=== PATIENT | female | born 1995 | race Two or more races ===

== ENCOUNTER 2021-04-30 07:18 | Observation (INO) | payer MEDICAID ==
[2021-04-30] MEDS ORDERED: PREN-96 PO (08:30)
== END 2021-04-30 09:33 | disposition home or self-care (01) ==
LOC: EDBD 07:18 → LDRP 07:18
PROVIDERS: ADMIT Obstetrics & Gynecology; ATTEND Obstetrics & Gynecology
DX: O99.891 Other specified diseases and conditions complicating pregnancy (principal); M54.9 Dorsalgia, unspecified; O99.353 Diseases of the nervous system complicating pregnancy, third trimester; G40.909 Epilepsy, unspecified, not intractable, without status epilepticus; O99.213 Obesity complicating pregnancy, third trimester; E66.01 Morbid (severe) obesity due to excess calories; Z3A.28 28 weeks gestation of pregnancy; W19.XXXA Unspecified fall, initial encounter; Y93.89 Activity, other specified; Y92.89 Other specified places as the place of occurrence of the external cause
CPT/HCPCS: 59025; 76805; 76818; 81002; 94760; G0378; G0379

== ENCOUNTER 2024-10-08 19:14 | Inpatient (IN) | payer MEDICAID ==
[~2024-10-08] VITALS: Ht 175.3 cm; Wt 165.2 kg
[~2024-10-08 19:14] MED LIST: PREN-96 PO
--- NOTE | 2024-10-08 19:25 | ED.PDOC ---
HPI Comments 29 y/o F, presents to the ED for CC chest pain. Patient states, she has been experiencing right sided non-radiating chest pain with associated symptoms of nausea [id number]. Patient comments on, current 04/06 chest tightness. Patient relays similar symptoms in the past however, never to this extent. Patient denies any social history. Patient denies shortness of breath, fatigue, weakness, or N/V/D. No other symptoms or modifying factors at this time. Time Seen by MD: 19:10 Reviewed Notes: Nurses Notes, Field Operations Farm Manager Notes, Medications, Allergies Allergies: Coded Allergies: Aspirin (Verified Allergy, Unknown, 10/08/24) Ibuprofen (Verified Allergy, Unknown, 10/08/24) Penicillins (Verified Allergy, Unknown, 10/08/24) Sulfa Antibiotics (Verified Allergy, Unknown, 10/08/24) Vancomycin (Verified Allergy, Unknown, 10/08/24) Home Meds Reported Medications Vit W/ Ferrous Fumara ( One Daily) Daily Tab, 1 TAB PO DAILY, #90 TAB 3 Refills 04/30/21 Information Source: Patient, Emergency Med Personnel, Significant Other Mode of Arrival: EMS Severity: Moderate Timing: Minutes Duration: Since onset Prehospital treatment: None Location: Chest (R) Radiation: No Radiation Quality: Tightness Cardiac Risk Factors: HTN PE Risk Factors: Other History of: None Modifying Factors: Nothing Associated Signs and Symptoms: None Past Medical History PAST MEDICAL HISTORY: DM, HTN 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: Denies all RAILROAD INSPECTOR Hx Family History Family History: Family hx of DM, Family hx of Cancer Social History Smoker: Non-Smoker Alcohol: Denies ETOH Use Drugs: Denies Drug Use Lives In: Home Constitutional: denies: chills, diaphoresis, fatigue, fever, malaise, sweats, weakness, others EENTM: denies: blurred vision, double vision, ear bleeding, ear discharge, ear drainage, ear pain, ear ringing, eye pain, eye redness, hearing loss, mouth pain, mouth swelling, nasal discharge, nose bleeding, nose congestion, nose pain, photophobia, tearing, throat pain, throat swelling, voice changes, others Respiratory: denies: cough, hemoptysis, orthopnea, SOB at rest, shortness of breath, SOB with excertion, stridor, wheezing, others Cardiovascular: reports: chest pain; denies: dizzy spells, diaphoresis, Dyspnea on exertion, edema, irregular heart beat, left arm pain, lightheadedness, palpitations, PND, syncope, others Gastrointestinal: reports: nausea; denies: abdomen distended, abdominal pain, blood streaked bowels, constipated, diarrhea, dysphagia, difficulty swallowing, hematemesis, melena, poor appetite, poor fluid intake, rectal bleeding, rectal pain, vomiting, others Genitourinary: denies: abnormal vagina bleeding, burning, dyspareunia, dysuria, flank pain, frequency, hematuria, incontinence, pain, , vagina discharge, urgency, others Neurological: denies: dizziness, fainting, headache, left sided numbness, left sided weakness, numbness, paresthesia, pre-existing deficit, right sided numbness, right sided weakness, seizure, speech problems, tingling, tremors, weakness, others Musculoskeletal: denies: back pain, gout, joint pain, joint swelling, muscle pain, muscle stiffness, neck pain, others Integumetry: denies: bruises, change in color, change in hair/nails, dryness, laceration, lesions, lumps, rash, wounds, others Allergic/Immunocompromised: denies: Difficulty Healing, Frequent Infections, Hives, Itching, others Hematologic/Lymphatic: denies: anemia, blood clots, easy bleeding, easy bruising, swollen glands, others Endocrine: denies: excessive hunger, excessive sweating, excessive thirst, excessive urination, flushing, intolerance to cold, intolerance to heat, unexplained weight gain, unexplained weight loss, others Psychiatric: denies: anxiety, bipolar disorder, depression, hopeless, panic disorder, schizophrenia, sleepless, suicidal, others All Other Systems: Reviewed and Negative Physical Exam General Appearance: Mild Distress, Obese HEENT: Normal ENT Inspection, Pharynx Normal, TMs Normal Neck: Full Range of Motion, Non-Tender, Normal, Normal Inspection Respiratory: Chest Non-Tender, Lungs Clear, No Accessory Muscle Use, No Respiratory Distress, Normal Breath Sounds Cardiovascular: No Edema, No JVD, No Murmur, No Gallop, Normal Peripheral Pulses, Regular Rate/Rhythm Breast Exam: Deferred Gastrointestinal: No Organomegaly, Non Tender, No Pulsatile Mass, Normal Bowel Sounds, Soft Genitalia: Deferred Pelvic: Deferred Rectal: Deferred Extremities: No calf tenderness, Normal capillary refill, Normal inspection, Normal range of motion, Non-tender, No pedal edema Musculoskeletal : Apperance: Normal Neurologic: Alert, all source intelligence II-XII nml as Tested, No Motor Deficits, Normal Affect, Normal Mood, No Sensory Deficits Cerebellar Function: Normal Reflexes: Normal Skin: Dry, Normal Color, Warm Lymphatic: No Adenopathy EKG EKG : Pulse Rate (adult): 111 [place]: Normal Cardiac Rhythm: ST Block: None Hypertrophy: None ST: Normal Was a procedure done? Was a procedure done?: No CP Differential Dx Differential Diagnosis: A-fib, Sinus Tachycardia Differential Diagnosis: HTN Essential, HTN Accelerated Differential Diagnosis: Chest Wall Pain, Costochondritis X-Ray, Labs, Meds, VS Vital Signs Date Time Temp Pulse Resp B/P (MAP) Pulse Ox O2 Delivery O2 Flow Rate FiO2 10/08/24 20:46 111 10/08/24 20:42 120 10/08/24 19:30 111 10/08/24 19:18 98.7 112 18 134/86 (102) 100 Lab Test 10/08/24 20:26 10/08/24 19:35 Range/Units D-Dimer, Quantitative < 0.19 0.0-0.49 mg/L FEU Troponin I High Sensitivity < 3 L < 3 L </=34 ng/L White Blood Count 18.9 H 4.4-10.8 10^3/uL Red Blood Count 5.43 H 4.0-5.20 10^6/uL Hemoglobin 13.2 12.2-16.2 g/dL Hematocrit 42.0 36.0-46.0 % Mean Corpuscular Volume 77.4 L 80.0-100.0 fL Mean Corpuscular Hemoglobin 24.3 L 28.0-32.0 pg Mean Corpuscular Hemoglobin Concent 31.3 L 32.0-36.0 g/dL Red Cell Distribution Width 17.1 H 11.8-14.3 % Platelet Count 335 140-450 10^3/uL Mean Platelet Volume 8.2 6.9-10.8 fL Neutrophils (%) (Auto) 72.3 37.0-80.0 % Lymphocytes (%) (Auto) 19.4 10.0-50.0 % Monocytes (%) (Auto) 6.7 0.0-12.0 % Eosinophils (%) (Auto) 1.1 0.0-7.0 % Basophils (%) (Auto) 0.5 0.0-2.0 % Neutrophils # (Auto) 13.6 H 1.6-8.6 10 ^3/uL Lymphocytes # (Auto) 3.7 0.4-5.4 10 ^3/uL Monocytes # (Auto) 1.3 0-1.3 10 ^3/uL Eosinophils # (Auto) 0.2 0-0.8 10 ^3/uL Basophils # (Auto) 0.1 0-0.2 10 ^3/uL Nucleated Red Blood Cells 0.1 % Sodium Level 137 136-145 mmol/L Potassium Level 4.2 3.5-5.1 mmol/L Chloride Level 105 98-107 mmol/L Carbon Dioxide Level 19 L 20-31 mmol/L Anion Gap 13 5-15 Blood Urea Nitrogen 15 9-23 mg/dL Creatinine 0.84 0.550-1.02 mg/dL Glomerular Filtration Rate Calc 96 >90 mL/min BUN/Creatinine Ratio 17.9 10.0-20.0 Serum Glucose 185 H 74-106 mg/dL Calcium Level 10.0 8.7-10.4 mg/dL CXR: FINDINGS: Lines and Tubes: None Lungs: No focal consolidation. Pleura: No effusion. No pneumothorax. Cardiomediastinal contours: Unremarkable Bones: No acute osseous abnormality. IMPRESSION: No acute cardiopulmonary disease. ATED BY: JOSE MIGUEL CASTILLO MD DICTATED DATE/TIME: 10/08/242006 SIGNED BY: JOSE MIGUEL CASTILLO MD SIGNED DATE/TIME: 10/08/242006 CC: The patient's CBC shows an elevated white blood cell count of 18.9 The rest of the CBC is within normal limits The chemistry panel is within normal limits The troponin level x2 is negative The D-dimer is negative The patient we will be getting a gallbladder ultrasound The patient will be signed out to Images Reviewed?: Images reviewed and evaluated by me Time of 1ST Reevaluation: 19:40 Reevaluation 1ST: Unchanged Patient Education/Counseling: Diagnosis, Treatment, Prognosis Family Education/Counseling: Diagnosis, Treatment, Prognosis Additional Information - I reviewed the following notes from patient's past medical encounters: 04/30/21 DX: FELL/DIZZY/ABD PAIN - The following tests were ordered, and results were reviewed by me: CBC, D- DIMER, TROPONIN X3,BMP, EKG X3, CXR - Additional information was gathered from interviewing the following independent Historian: EMS - I reviewed and agreed with the following test results read by other provider: CXR - I discussed treatments and results with medical personnel and: FAMILY Departure 1 Departure Time of Disposition: 22:04 Impression: Primary Impression: Acute chest pain Disposition: 30 STILL A PATIENT Condition: Fair Critical Care Note Critical Care Time?: No Stability Stability form required: No Heart Score Heart Score: Heart Score Response (Comments) Value History N/A 0 EKG N/A 0 Age N/A 0 Risk Factors N/A 0 Troponin N/A 0 Total 0 I personally scribed for ALTAF SNIDER MD ([email or web address]) on 10/08/24 at 19:25. Electronically submitted by Abigail Gordon ([email or web address]). I personally scribed for ALTAF SNIDER MD ([email or web address]) on 10/08/24 at 19:34. Electronically submitted by Abigail Gordon ([email or web address]). I personally scribed for ALTAF SNIDER MD ([email or web address]) on 10/08/24 at 19:48. Electronically submitted by Abigail Gordon ([email or web address]). I personally scribed for ALTAF SNIDER MD ([email or web address]) on 10/08/24 at 20:22. Electronically submitted by Abigail Gordon ([email or web address]). I personally scribed for ALTAF SNIDER MD ([email or web address]) on 10/08/24 at 20:46. Electronically submitted by Abigail Gordon ([email or web address]). ALTAF SNIDER MD Oct 08, 2024 19:25
[2024-10-08 20:01] LABS: Basophils # (auto) 0.1 10 ^3/uL (0-0.2); Basophils % (auto) 0.5 % (0.0-2.0); Eosinophils # (auto) 0.2 10 ^3/uL (0-0.8); Eosinophils % (auto) 1.1 % (0.0-7.0); Hemoglobin 13.2 g/dL (12.2-16.2); Lymphocytes # (auto) 3.7 10 ^3/uL (0.4-5.4); Lymphocytes % (auto) 19.4 % (10.0-50.0); Mean Corpuscular Hemoglobin 24.3 pg (28.0-32.0); Mean Corpuscular Hgb Conc. 31.3 g/dL (32.0-36.0); Mean Corpuscular Volume 77.4 fL (80.0-100.0); Monocytes # (auto) 1.3 10 ^3/uL (0-1.3); Monocytes % (auto) 6.7 % (0.0-12.0); Neutrophils # (auto) 13.6 10 ^3/uL (1.6-8.6); Neutrophils % (auto) 72.3 % (37.0-80.0); Nucleated Red Blood Cells % 0.1 %; Platelet Count (auto) 335 10^3/uL (140-450); Red Blood Cells 5.43 10^6/uL (4.0-5.20); Red Cell Distribution Width 17.1 % (11.8-14.3); White Blood Cell 18.9 10^3/uL (4.4-10.8)
--- NOTE | 2024-10-08 20:10 | DVH ---
CHEST RADIOGRAPH Indication: cp Technique: Single frontal view of the chest was obtained Comparison: None FINDINGS: Lines and Tubes: None Lungs: No focal consolidation. Pleura: No effusion. No pneumothorax. Cardiomediastinal contours: Unremarkable Bones: No acute osseous abnormality. IMPRESSION: No acute cardiopulmonary disease.
[2024-10-08 20:28] LABS: Chloride 105 mmol/L (98-107); Potassium 4.2 mmol/L (3.5-5.1); Sodium 137 mmol/L (136-145)
[2024-10-08 20:29] LABS: Anion Gap 13 (5-15)
[2024-10-08 20:35] LABS: BUN/Creatinine Ratio 17.9 (10.0-20.0); Blood Urea Nitrogen 15 mg/dL (9-23); Carbon Dioxide 19 mmol/L (20-31); Glucose 185 mg/dL (74-106)
--- NOTE | 2024-10-08 23:23 | DVH ---
ABDOMINAL ULTRASOUND CLINICAL HISTORY: Abdominal pain TECHNIQUE: Multiple grayscale and color Doppler ultrasound images were obtained of the abdomen. WID: COMPARISON: None FINDINGS: Liver and Biliary System: Hepatomegaly and diffuse increased echogenicity of the liver which measures 20 cm. No focal hepatic observations. No intrahepatic bile duct dilatation. The common duct measure s 0.5 cm at the abiola hepatis. The gallbladder contains cholelithiasis. Sonographic maradiaga's si gn is positive. Gallbladder is normal caliber. Borderline wall thickening measuring 3.8 mm Pancreas: Visualized portions are unremarkable. Kidneys: The right kidney is 13.4 cm . No hydronephrosis, increased echogenicity, shadowing stone, or focal lesion. IMPRESSION: 1. Normal caliber gallbladder and cholelithiasis. Borderline wall thickening and positive sonographic maradiaga's sign. A possibility includes chronic cholecystitis. Consider obtaining a nuclear medicine H BINDU scan for further evaluation if there is continued high clinical concern. 2. Hepatomegaly with diffuse hepatic steatosis
[2024-10-08] MEDS ORDERED: PIPERACILLIN-TAZO 4.5GM 100 ML IV ONE (23:45)
[2024-10-09] VITALS (9 sets, daily range): BP systolic 108–126; BP diastolic 70–79; PULSE 87–112; RESP 12–19; TEMP 97.5–99.1; O2SAT 97–100
[2024-10-09] MEDS: SODIUM CHLORIDE 0.9% 1,000 ML IV SCH
[2024-10-09] MEDS ORDERED: MORPHINE SULFATE INJ 2 MG/ml SYRG IV PRN ×2
[2024-10-09] MEDS ORDERED: NITROGLYCERIN 0.4 MG SL TAB SL PRN
--- NOTE | 2024-10-09 00:54 | DVHHPRES ---
History of Present Illness Resident Creating Document: LYDIA WHITMAN RESIDENT History of Present Illness SIRI SOLIS is a 29-year-old female with a PMH of recently diagnosed lupus, type 2 DM, seizures, GERD, rheumatoid arthritis presented to the ED with the chief complaints of right-sided chest pain which started on the day of admission 6:00 p.m.. Patient reported she has been started having right-sided chest pain which is sharp, and right-sided upper abdominal pain associated with nausea, vomiting which prompted her to visit ED. patient reported of she has been experiencing like these symptoms before but not severe like now. My assessment patient denies fever, diarrhea, diaphoresis, and other acute associated symptoms. PMH: Lupus diagnosed in July not started medications yet, type 2 DM since 2020 and on Ozempic, seizures since 6 years old on Topamax, GERD on Pepcid, rheumatoid arthritis and scoliosis since 16 years old, chronic pain for which sh e takes Chuckey PSH: 3 C sections 2018, Family Hx: Not significant Social Hx: Lives with the family. Denies smoking, alcohol and other drug abuse Alergies: Aspirin, ibuprofen, penicillins, sulfa antibiotics, vancomycin (hives and tachycardia) Home medications: Topamax 25 mg, Pepcid 40, Robaxin 750, Chuckey Review of Systems Review of Systems Patient seen and examined at the bedside. Patient reported improvement in her chest pain, reported no new complaints. Ultrasound showed findings suggestive of cholelithiasis and chronic cholecystitis, order HIDA scan and started Levaquin and metronidazole. Consulted surgeon. Constitutional: No: Fever, Chills, Sweats, Weakness, Malaise, Other Eyes: No: Pain, Vision change, Conjunctivae inflammation, Eyelid inflammation, Other, Redness ENT: No: Ear pain, Ear discharge, Nose pain, Nose discharge, Nose congestion, Mouth pain, Mouth swelling, Throat pain, Throat swelling, Other Respiratory: No: Cough, Dry, Shortness of breath, SOB with excertion, Wheezing, Hemoptysis, Pleuritic Pain, Sputum, Wheezing, Other Cardiovascular: Chest Pain (Right sided) Gastrointestinal: Nausea, Vomiting, Abdominal Pain Genitourinary: No Dysuria, No Frequency, No Incontinence, No Hematuria, No Retention, No Other Musculoskeletal: No: other, neck pain, shoulder pain, arm pain, back pain, hand pain, leg pain, foot pain Skin: No: Rash, Lesions, Jaundice, Bruising, Other Neurological: No: Weakness, Numbness, Incoordination, Change in speech, Confusion, Seizures, Other Allergies: Coded Allergies: Aspirin (Verified Allergy, Unknown, 10/08/24) Ibuprofen (Verified Allergy, Unknown, 10/08/24) Penicillins (Verified Allergy, Unknown, 10/08/24) Sulfa Antibiotics (Verified Allergy, Unknown, 10/08/24) Vancomycin (Verified Allergy, Unknown, 10/08/24) Medications Current Medications Medications Dose Ordered Sig/Senthil Route Start Time Stop Time Status Last Admin Dose Admin Sodium Chloride 10 ml Q8HR IV 10/09/24 06:00 Sodium Chloride 1,000 ml @ 60 mls/hr [id number] IV 10/09/24 00:00 Ondansetron HCl 4 mg Q4HP PRN IV 10/09/24 00:00 Enoxaparin Sodium 40 mg DAILY SC 10/09/24 10:00 Acetaminophen 650 mg Q6HP PRN PO 10/09/24 00:00 Morphine Sulfate 2 mg Q4HPRN PRN IV 10/09/24 00:00 Nitroglycerin 0.4 mg Q5MINP PRN SL 10/09/24 00:00 Morphine Sulfate 2 mg Q30M PRN IV 10/09/24 00:00 Levofloxacin/ Dextrose 100 ml @ 100 mls/hr DAILY IV 10/09/24 00:30 UNV Metronidazole 100 ml @ 100 mls/hr DAILY IV 10/09/24 00:30 UNV Pantoprazole Sodium 40 mg DAILY IV 10/09/24 10:00 UNV Diagnostic Test (Pha) 1 strip ACHS 10/09/24 07:00 UNV Insulin Human Regular HS SC 10/09/24 22:00 UNV Insulin Human Regular AC SC 10/09/24 07:00 UNV Dextrose 50 ml UD PRN IV 10/09/24 01:00 UNV Exam Vital Signs Vital Signs Date Time Temp Pulse Resp B/P (MAP) Pulse Ox O2 Delivery O2 Flow Rate FiO2 10/08/24 20:46 111 10/08/24 19:18 98.7 18 134/86 (102) 100 Exam Pt is lying on bed General Appearance: Alert, Oriented X3, Cooperative HEENT: Atraumatic, Mucous membranes moist/pink Respiratory: Clear to auscultation, Normal air movement, Cardiovascular: Regular rate, Normal S1, Normal S2, Abdominal: ALEXANDER tenderness Active bowel sounds, Soft, no distention Extremities: No edema, no cyanosis, no tenederness/swelling Neuro: Normal speech, sensorimotor deficits none Psych/Mental Status: Mental status NL, Mood NL Nurse was there as sharperone during examination Labs/Xrays Labs Test 10/08/24 20:26 10/08/24 19:35 Range/Units D-Dimer, Quantitative < 0.19 0.0-0.49 mg/L FEU Troponin I High Sensitivity < 3 L </=34 ng/L Lipase 49 12-53 U/L Beta HCG, Quantitative 0.2 L 1.5-4.2 mIU/mL White Blood Count 18.9 H 4.4-10.8 10^3/uL Red Blood Count 5.43 H 4.0-5.20 10^6/uL Hemoglobin 13.2 12.2-16.2 g/dL Hematocrit 42.0 36.0-46.0 % Mean Corpuscular Volume 77.4 L 80.0-100.0 fL Mean Corpuscular Hemoglobin 24.3 L 28.0-32.0 pg Mean Corpuscular Hemoglobin Concent 31.3 L 32.0-36.0 g/dL Red Cell Distribution Width 17.1 H 11.8-14.3 % Platelet Count 335 140-450 10^3/uL Mean Platelet Volume 8.2 6.9-10.8 fL Neutrophils (%) (Auto) 72.3 37.0-80.0 % Lymphocytes (%) (Auto) 19.4 10.0-50.0 % Monocytes (%) (Auto) 6.7 0.0-12.0 % Eosinophils (%) (Auto) 1.1 0.0-7.0 % Basophils (%) (Auto) 0.5 0.0-2.0 % Neutrophils # (Auto) 13.6 H 1.6-8.6 10 ^3/uL Lymphocytes # (Auto) 3.7 0.4-5.4 10 ^3/uL Monocytes # (Auto) 1.3 0-1.3 10 ^3/uL Eosinophils # (Auto) 0.2 0-0.8 10 ^3/uL Basophils # (Auto) 0.1 0-0.2 10 ^3/uL Nucleated Red Blood Cells 0.1 % Sodium Level 137 136-145 mmol/L Potassium Level 4.2 3.5-5.1 mmol/L Chloride Level 105 98-107 mmol/L Carbon Dioxide Level 19 L 20-31 mmol/L Anion Gap 13 5-15 Blood Urea Nitrogen 15 9-23 mg/dL Creatinine 0.84 0.550-1.02 mg/dL Glomerular Filtration Rate Calc 96 >90 mL/min BUN/Creatinine Ratio 17.9 10.0-20.0 Serum Glucose 185 H 74-106 mg/dL Calcium Level 10.0 8.7-10.4 mg/dL Assessment/Plan Assessment/Plan # Right-sided chest pain likely due to cholecystitis -troponins x3 were negative -reviewed EKG # Rule out acute cholecystitis # ? Symptomatic gallstones/cholelithiasis # chronic cholecystitis # SIRS vs Sepsis from above -ultrasound abdomen showed findings suggestive of chronic cholecystitis -ordered HIDA scan -started Levaquin and Flagyl -surgical consult, pending -NPO for now -pain management as needed # type 2 DM -monitor with the Accu-Cheks # H/o seizure disorder -continue Topamax # GERD -Protonix # newly diagnosed lupus -outpatient management -patient has scheduled appointment next month # Rheumatoid Arthritis -resume home meds PUD PPX: Protonix VTE PPX: Lovenox Diet: NPO Goals of care discussed with the patient and family for more than 27 minutes: Full code status Case discussed with Dr. Florian, patient and nurse Plan discussed with: Patient, Spouse, Other (RN) My Orders Orders - LYDIA WHITMAN RESIDENT Procedure Category Date Status Time Admit ADMIT 10/08/24 Transmitted 23:59 Allergies BARRETT 10/08/24 In Process 23:59 Code Status CODE 10/08/24 Transmitted 23:59 Sodium Chloride Lock PHA 10/09/24 In Process (Saline Lock Ns) 06:00 Sodium Chloride 0.9% PHA 10/09/24 In Process 00:00 Ondansetron Hcl PHA 10/09/24 In Process (Zofran) 00:00 Enoxaparin Sodium PHA 10/09/24 In Process (Lovenox) 10:00 Complete Blood Count LAB 10/09/24 Logged 04:00 Comprehensive LAB 10/09/24 Logged Metabolic Panel 04:00 Npo (Nothing By DIET 10/09/24 Transmitted Mouth) Diet Breakfast Condition: Stable BARRETT 10/08/24 In Process 23:59 Acetaminophen Tablet PHA 10/09/24 In Process (Tylenol Tablet) 00:00 Morphine Sulfate PHA 10/09/24 In Process Injection 00:00 Nitroglycerin PHA 10/09/24 In Process Sublingual (Ntrostat 00:00 Morphine Sulfate PHA 10/09/24 In Process Injection 00:00 Oxygen By Nasal RT 10/08/24 Transmitted Cannula 23:59 Stat Ekg For Chest BARRETT 10/08/24 In Process Pain 23:59 Notify Md Of Changes BARRETT 10/08/24 In Process From Base 23:59 Olericulture Professor For [facility] 10/08/24 In Process 24 Hours 23:59 Emergency Dysrhythmia [facility] 10/08/24 In Process Protocol 23:59 Rhythm Strips Once [facility] 10/08/24 In Process Every Shift 23:59 Lipase LAB 10/09/24 Logged 00:30 Thyroid Stimulating LAB 10/09/24 Logged Hormone 00:30 Urinalysis LAB 10/09/24 Logged 00:30 Magnesium LAB 10/09/24 Logged 00:30 PTPTT LAB 10/09/24 Logged 00:30 Drug Screen LAB 10/09/24 Logged 00:30 Levofloxacin 500mg PHA 10/09/24 Logged (Levaquin 500mg/ 100m 00:30 Metronidazole PHA 10/09/24 Logged 500mg/100ml (Flagyl 00:30 * Surgical Consult CONS 10/09/24 Transmitted Nm Hida Scan NM 10/09/24 Logged 00:30 Topiramate (Topamax) PHA 10/09/24 Logged 00:45 Pantoprazole PHA 10/09/24 Logged (Protonix) 10:00 Glucose Blood PHA 10/09/24 Logged (Accu-Chek Comfort 07:00 Insulin R (Human) PHA 10/09/24 Logged (Insulin R) 22:00 Insulin R (Human) PHA 10/09/24 Logged (Insulin R) 07:00 Dextrose 50% Syringe PHA 10/09/24 Logged 01:00 Date of Service: Oct 08, 2024 Billing Provider: KAREN FLORIAN MD Common Visit Codes: [id number] INP/OBS CARE (HIGH) ANTONETTE,KHAJA RESIDENT Oct 09, 2024 00:54 KAREN FLORIAN MD Oct 09, 2024 23:53
[2024-10-09] MEDS ORDERED: DEXTROSE (50%) 50ML SYRG IV PRN (01:00)
[2024-10-09 01:27] LABS: INR 1.03 (0.9-1.15); Partial Thromboplastin Time 25.2 SEC (24.5-34.5); Prothrombin Time 10.9 sec (9.3-11.8)
[2024-10-09] MEDS: ONDANSETRON HCL 4 MG/2 ML VIAL IV ONE (01:49)
[2024-10-09] MEDS: TOPIRAMATE 25 MG TAB PO ONE (01:49)
[2024-10-09] MEDS: MORPHINE SULFATE 4 MG/ML SYR/VIAL IV ONE (01:49)
[2024-10-09 02:02] LABS: Urine Bacteria None Seen /hpf (None Seen)
[2024-10-09] MEDS: metroNIDAZOLE 500MG/100ML 100 ML IV SCH (02:27)
[2024-10-09 02:37] LABS: Urine Blood Negative /uL (Negative); Urine Clarity Clear (Clear); Urine Color Yellow (Yellow); Urine Mucus FEW (None Seen); Urine Protein, UAD TRACE (Negative); Urine Specific Gravity 1.034 (1.001-1.035); Urine Squamous Epithelial Cell MOD /hpf (<5); Urine Urobilinogen Normal (Negative); Urine WBC 2 /HPF (0-5)
[2024-10-09] MEDS: levoFLOXacin 500MG 100 ML IV SCH (02:39)
[2024-10-09] MEDS ORDERED: TOPI25TA84 (04:42)
[2024-10-09] MEDS ORDERED: LORA-483 (04:42)
[2024-10-09] MEDS ORDERED: ROSU5TAB24 (04:42)
[2024-10-09] MEDS ORDERED: LISI2.5T47 (04:42)
[2024-10-09] MEDS ORDERED: ACET-6 (04:42)
[2024-10-09] MEDS ORDERED: HYDR25TA5 (04:42)
[2024-10-09] MEDS ORDERED: SEMA2INJ3 SC (04:42)
[2024-10-09] MEDS ORDERED: AZEL0.054 EACHEYE (04:42)
[2024-10-09] MEDS ORDERED: METH-1182 (04:42)
[2024-10-09] MEDS ORDERED: FAMO40TA7 (04:42)
[2024-10-09] MEDS: SODIUM CHLOR 0.9% PF (SALINE LOCK) 10ML VIAL/SYR IV SCH (06:07)
[2024-10-09] MEDS: InsuLIN REG 1unit/0.01ml Soln (100units/ml) SC SCH ×2 (06:07→22:00)
[2024-10-09] MEDS: ACCU-CHEK COMFORT CURVE STRIP VI SCH (06:07)
--- NOTE | 2024-10-09 06:13 | ECG ---
[facility] Test Date: 2024-10-08 Test Time: 19:30:21 Pat Name: SIRI SOLIS Department: ER Room: [address] [place] [address] Gender: F Geriatric Physician: : [id number] Requested By: ALTAF SNIDER Order Number: [id number] Reading MD: Miguel Can Measurements Intervals [place] Rate: 111 P: 45 VT: 144 QRS: 8 QRSD: 96 T: 53 QT: 332 QTc: 451 Interpretive Statements Sinus tachycardia Low voltage, precordial leads Electronically Signed On 10-10-2024 11:59:00 PST by Miguel Can Please click the below link to view image of tracing.
[2024-10-09 07:26] LABS: Basophils # (auto) 0.1 10 ^3/uL (0-0.2); Basophils % (auto) 0.4 % (0.0-2.0); Eosinophils # (auto) 0.1 10 ^3/uL (0-0.8); Eosinophils % (auto) 0.7 % (0.0-7.0); Hematocrit 38.3 % (36.0-46.0); Hemoglobin 12.3 g/dL (12.2-16.2); Lymphocytes # (auto) 2.8 10 ^3/uL (0.4-5.4); Lymphocytes % (auto) 17.4 % (10.0-50.0); Mean Corpuscular Hemoglobin 24.7 pg (28.0-32.0); Monocytes # (auto) 0.8 10 ^3/uL (0-1.3); Monocytes % (auto) 4.9 % (0.0-12.0); Neutrophils # (auto) 12.4 10 ^3/uL (1.6-8.6); Neutrophils % (auto) 76.6 % (37.0-80.0); Platelet Count (auto) 288 10^3/uL (140-450); Red Blood Cells 4.98 10^6/uL (4.0-5.20); Red Cell Distribution Width 16.9 % (11.8-14.3); White Blood Cell 16.1 10^3/uL (4.4-10.8)
[2024-10-09 07:40] LABS: Alanine Aminotransferase 27 U/L (7-40); Albumin 4.6 g/dL (3.2-4.8); Alkaline Phosphatase 71 U/L (46-116); Anion Gap 11 (5-15); Aspartate Aminotransferase 21 U/L (13-40); Blood Urea Nitrogen 12 mg/dL (9-23); Calcium 9.8 mg/dL (8.7-10.4); Carbon Dioxide 22 mmol/L (20-31); Chloride 103 mmol/L (98-107); Sodium 136 mmol/L (136-145)
[2024-10-09 07:41] LABS: Bilirubin, Total 0.4 mg/dL (0.2-1.0); Total Protein 7.7 g/dL (5.7-8.2)
[2024-10-09 07:54] LABS: Glucose 148 mg/dL (74-106); Potassium 3.5 mmol/L (3.5-5.1)
[2024-10-09] MEDS: ONDANSETRON HCL 4 MG/2 ML VIAL IV PRN (09:40)
[2024-10-09] MEDS: PANTOPRAZOLE 40 MG/10 ML VIAL INJ IV SCH (09:43)
[2024-10-09] MEDS: ENOXAPARIN SOD 40 MG/0.4 ML SYRINGE SC SCH (09:47)
--- NOTE | 2024-10-09 11:26 | DVHINCON2 ---
Date of service: Oct 09, 2024 Reason for Consultation cholelithiasis, cholecystitis History of Present Illness History Source: Patient, RN Notes, MD Notes Exam Limitations: No limitations HPI 29-year-old female with a presented to the emergency department with complaint of Right upper quadrant pain that started a day ago associated with nausea and vomiting. Patient states pain was sharp 10/10 RUQ . Home Meds Reported Medications Semaglutide (Ozempic) 2 Mg/3 Ml Inj, 2 MG SC, INJ 10/09/24 Azelastine Hcl (Ophth) (Azelastine Hcl) 0.05 % Samir, EACHEYE 10/09/24 Loratadine (CLARITIN TABLET) 10 Mg Tb, 1 DAILY 10/09/24 Methocarbamol (Methocarbamol) 750 Mg Tab, 1 DAILY 10/09/24 Acetaminophen (Acetaminophen Extra Stren) 500 Mg Tab, 1 PRN 10/09/24 Topiramate (Topiramate) 25 Mg Tab, 1 DAILY 10/09/24 Famotidine (Famotidine) 40 Mg Tab, 1 DAILY 10/09/24 Rosuvastatin Calcium (Rosuvastatin Calcium) 5 Mg Tab, 1 DAILY 10/09/24 Hctz (Hydrochlorothiazide) 25 Mg Tab, 1 DAILY 10/09/24 Lisinopril (Lisinopril) 2.5 Mg Tab, 1 DAILY 10/09/24 Vit W/ Ferrous Fumara ( One Daily) Daily Tab, 1 TAB PO DAILY, #90 TAB 3 Refills 04/30/21 Chief Complaint of Abdominal/F: Abdominal pain Location of Abdominal Onset: RUQ Past Medical History Others Lupus type 2 DM , seizures , GERD , rheumatoid arthritis and scoliosis von willebrand disease Past Surgical History: Patient Family History: Diabetes mellitus G8 MOTHER G8 FATHER FH: cancer G8 MOTHER FH: congestive heart failure G8 MOTHER FH: lupus G8 FATHER Smoker: No Hx (Negative) Alocohol: None Drugs: None Lives with: With family Review of Systems Constitutional: No symptom reported Ears, Nose, & Throat: No symptom reported Eyes: No symptom reported Pulmonary/Respiratory: No symptom reported Cardiovascular: No symptom reported Gastrointestinal: No symptom reported Genitourinary: No symptom reported Musculoskeletal: No symptom reported Skin: No symptom reported Psychiatric: No symptom reported Endocrine: No symptom reported Hemotologic/Lymphatic: No symptom reported H&P Exam Vital Signs Vital Signs Date Time Temp Pulse Resp B/P (MAP) Pulse Ox O2 Delivery O2 Flow Rate FiO2 10/09/24 09:49 98.0 108 15 108/79 (89) 98.0 10/09/24 05:00 97 10/09/24 03:07 Room Air* 0 21 General Appeara: Well developed, Well nourished, Normal Appearance, Obese Head Exam: Normal inspection Neck Exam: Normal inspection, Non-tender Nasal Exam: Normal inspection Mouth: Normal Inspection Pulmonary/Respiratory: Normal inspection Cardiovascular/Chest: Normal inspection, Regular rate, Normal Rhythm Abdominal Exam: Normal bowel sounds, Soft Neuro/Mental St: Alert, Oriented Appearance: Appropriate appearance Eye contact/ Speech: Cooperative, Good eye contact, Normal speech Skin Exam: Normal inspection, Normal color, Warm/dry Labs/Xrays Labs Test 10/09/24 06:44 10/09/24 06:05 10/09/24 01:43 10/09/24 00:56 Range/Units White Blood Count 16.1 H 4.4-10.8 10^3/uL Red Blood Count 4.98 4.0-5.20 10^6/uL Hemoglobin 12.3 12.2-16.2 g/dL Hematocrit 38.3 36.0-46.0 % Mean Corpuscular Volume 77.0 L 80.0-100.0 fL Mean Corpuscular Hemoglobin 24.7 L 28.0-32.0 pg Mean Corpuscular Hemoglobin Concent 32.0 32.0-36.0 g/dL Red Cell Distribution Width 16.9 H 11.8-14.3 % Platelet Count 288 140-450 10^3/uL Mean Platelet Volume 8.2 6.9-10.8 fL Neutrophils (%) (Auto) 76.6 37.0-80.0 % Lymphocytes (%) (Auto) 17.4 10.0-50.0 % Monocytes (%) (Auto) 4.9 0.0-12.0 % Eosinophils (%) (Auto) 0.7 0.0-7.0 % Basophils (%) (Auto) 0.4 0.0-2.0 % Neutrophils # (Auto) 12.4 H 1.6-8.6 10 ^3/uL Lymphocytes # (Auto) 2.8 0.4-5.4 10 ^3/uL Monocytes # (Auto) 0.8 0-1.3 10 ^3/uL Eosinophils # (Auto) 0.1 0-0.8 10 ^3/uL Basophils # (Auto) 0.1 0-0.2 10 ^3/uL Nucleated Red Blood Cells 0.0 % Sodium Level 136 136-145 mmol/L Potassium Level 3.5 3.5-5.1 mmol/L Chloride Level 103 98-107 mmol/L Carbon Dioxide Level 22 20-31 mmol/L Anion Gap 11 5-15 Blood Urea Nitrogen 12 9-23 mg/dL Creatinine 0.75 0.550-1.02 mg/dL Glomerular Filtration Rate Calc 110 >90 mL/min BUN/Creatinine Ratio 16.0 10.0-20.0 Serum Glucose 148 H 74-106 mg/dL Calcium Level 9.8 8.7-10.4 mg/dL Total Bilirubin 0.4 0.2-1.0 mg/dL Aspartate Amino Transferase (AST) 21 13-40 U/L Alanine Aminotransferase (ALT) 27 7-40 U/L Alkaline Phosphatase 71 46-116 U/L Total Protein 7.7 5.7-8.2 g/dL Albumin 4.6 3.2-4.8 g/dL POC Glucose 152 H 70-106 mg/dl Urine Color Yellow Yellow Urine Clarity Clear Clear Urine pH 7.0 5.0-9.0 Urine Specific [place] 1.034 1.001-1.035 Urine Protein Trace H Negative Urine Ketones Negative Negative Urine Blood Negative Negative /uL Urine Nitrite Negative Negative Urine Bilirubin Negative Negative Urine Urobilinogen Normal Negative mg/dL Urine Leukocyte Esterase Negative Negative /uL Urine RBC 2 0 - 4 /hpf Urine Microscopic WBC 2 0-5 /HPF Urine Squamous Epithelial Cells Mod <5 /hpf Urine Bacteria None seen None Seen /hpf Urine Mucus Few None Seen Urine Glucose Normal Normal mg/dL Prothrombin Time 10.9 9.3-11.8 sec Prothrombin Time INR 1.03 0.9-1.15 Activated Partial Thromboplast Time 25.2 24.5-34.5 SEC Magnesium Level 2.0 1.6-2.6 mg/dL Lipase 42 12-53 U/L Thyroid Stimulating Hormone (TSH) 2.12 0.55-4.78 uIU/mL Test 10/08/24 20:26 Range/Units D-Dimer, Quantitative < 0.19 0.0-0.49 mg/L FEU Troponin I High Sensitivity < 3 L </=34 ng/L Beta HCG, Quantitative 0.2 L 1.5-4.2 mIU/mL Assessment/Plan Plan patient feeling better , no complaint of pain , RUQ non tender, patient states due to her medical history she would like to avoid surgery if at all possible, manage conservatively please recall if needed continue with IV antibiotics, Plan discussed with: Patient Visit Coding Surgery Date of Service if different f: Oct 09, 2024 Billing Provider: RADHA CUELLAR MD Surgery Visit Codes: 22236 - INP CONSULT <80 MIN LUNA SHIELDS NP Oct 09, 2024 11:26
[2024-10-09 13:09] LABS: Opiate Scree,Urine Pos (NEGATIVE)
[2024-10-09 13:15] LABS: Amphetamine Screen, Urine Neg (NEGATIVE); Barbiturate Scree,Urine Neg (NEGATIVE); Benzodiazephine Screen, Urine Neg (NEGATIVE); Cocaine Screen, Urine Neg (NEGATIVE); Phencyclidine Screen, Urine Neg (NEGATIVE)
[2024-10-09 13:34] LABS: Cannabinoid Screen, Urine Neg (NEGATIVE)
--- NOTE | 2024-10-09 13:51 | DVHPN2 ---
Progress Note Date Seen: Oct 09, 2024 Medical Necessity Reason Pt with a Central, PICC or Fol: No Subjective Patient reports: No new complaints Review of Systems: HEENT:Normal, CVS:Normal, RESPIRATORY:Normal, GI:Normal, :Normal, MSK:Normal, NEURO:Normal Objective vital signs Vital Sign Date Time Temp Pulse Resp B/P (MAP) Pulse Ox O2 Delivery O2 Flow Rate FiO2 10/09/24 09:49 98.0 108 15 108/79 (89) 98.0 10/09/24 05:00 97 10/09/24 03:07 Room Air* 0 21 Total Intake and Output 10/08/24 10/08/24 10/09/24 15:00 23:00 07:00 Intake Total 0 ml Balance 0 ml medications Current Medications Medications Dose Ordered Sig/Senthil Route Start Time Stop Time Status Last Admin Dose Admin Sodium Chloride 10 ml Q8HR IV 10/09/24 06:00 10/09/24 06:07 10 ML Sodium Chloride 1,000 ml @ 60 mls/hr [id number] IV 10/09/24 00:00 Ondansetron HCl 4 mg Q4HP PRN IV 10/09/24 00:00 10/09/24 09:40 4 MG Enoxaparin Sodium 40 mg DAILY SC 10/09/24 10:00 Acetaminophen 650 mg Q6HP PRN PO 10/09/24 00:00 Morphine Sulfate 2 mg Q4HPRN PRN IV 10/09/24 00:00 Nitroglycerin 0.4 mg Q5MINP PRN SL 10/09/24 00:00 Morphine Sulfate 2 mg Q30M PRN IV 10/09/24 00:00 Levofloxacin/ Dextrose 100 ml @ 100 mls/hr Q24H IV 10/09/24 00:30 Metronidazole 100 ml @ 100 mls/hr DAILY IV 10/09/24 00:30 10/09/24 09:48 100 MLS/HR Pantoprazole Sodium 40 mg DAILY IV 10/09/24 10:00 10/09/24 09:43 40 MG Diagnostic Test (Pha) 1 strip ACHS 10/09/24 07:00 10/09/24 11:21 1 STRIP Insulin Human Regular HS SC 10/09/24 22:00 Insulin Human Regular AC SC 10/09/24 07:00 Dextrose 50 ml UD PRN IV 10/09/24 01:00 Examination: GENERAL:Normal, HEENT:Normal, NECK:Normal, LUNGS:Normal, CVS:Normal, ABDOMEN:Normal, MSK:Normal, SKIN:Normal, NEURO:Normal, :Normal laboratory and microbiology Laboratory Tests 10/09/24 06:44 Test 10/09/24 06:44 Range/Units Serum Glucose 148 H 74-106 mg/dL Problem List/Assessment/Plan Problem List/Assessment/Plan #1 sepsis ? acute bobby/gallstones: iv antibiotics, does not wish surgery #2 dm: ssi #3 htn #4 morbid obesity #5 seizure disorder: on topamax #6 chronic pain #7 lupus advance care planning- full code- time spent 19 mins Plan discussed with: Patient My Orders My Orders Orders - ANNE-MARIE MENEZES MD Procedure Category Date Status Time Clear Liq Diet DIET 10/09/24 Verified Dinner Topiramate (Topamax) PHA 10/09/24 Verified 18:00 Ceftriaxone Ivpb PHA 10/10/24 Verified Rocephin 09:00 Ceftriaxone Ivpb PHA 10/09/24 Verified Rocephin 13:45 Hydrocodone-Acet PHA 10/09/24 Verified 7.5/325mg Tab ([place] 13:45 Comprehensive LAB 10/10/24 Verified Metabolic Panel 06:00 Date of Service: Oct 09, 2024 Billing Provider: ANNE-MARIE MENEZES MD Common Visit Codes: [id number] INP/OBS CARE(HIGH) Secondary Visit Codes: [id number] CARE PLAN 30 MINUTES ANNE-MARIE MENEZES MD Oct 09, 2024 13:50
--- NOTE | 2024-10-09 14:51 | ECG ---
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
[2024-10-09] MEDS: cefTRIAXone 1GM/50ML D5W 50 ML IV ONE (15:32)
[2024-10-09] MEDS: HYDROcodone-ACET 7.5/325MG TAB PO PRN (16:44)
[2024-10-09] MEDS: TOPIRAMATE 25 MG TAB PO SCH (17:57)
[2024-10-09] MEDS: ACETAMINOPHEN 325 MG TAB PO PRN (23:03)
[2024-10-10] VITALS (8 sets, daily range): BP systolic 108–138; BP diastolic 57–76; PULSE 93–110; RESP 16–20; TEMP 97.6–98.3; O2SAT 93–99
[2024-10-10 06:16] LABS: Basophils # (auto) 0 10 ^3/uL (0-0.2); Eosinophils # (auto) 0.2 10 ^3/uL (0-0.8); Monocytes # (auto) 0.7 10 ^3/uL (0-1.3)
[2024-10-10 06:19] LABS: Basophils % (auto) 0.3 % (0.0-2.0); Eosinophils % (auto) 1.4 % (0.0-7.0); Hematocrit 35.1 % (36.0-46.0); Hemoglobin 11.4 g/dL (12.2-16.2); Lymphocytes # (auto) 2.4 10 ^3/uL (0.4-5.4); Lymphocytes % (auto) 20.9 % (10.0-50.0); Mean Corpuscular Hemoglobin 24.7 pg (28.0-32.0); Mean Corpuscular Hgb Conc. 32.5 g/dL (32.0-36.0); Mean Corpuscular Volume 75.9 fL (80.0-100.0); Monocytes % (auto) 6.4 % (0.0-12.0); Neutrophils # (auto) 8.1 10 ^3/uL (1.6-8.6); Platelet Count (auto) 276 10^3/uL (140-450); Red Blood Cells 4.62 10^6/uL (4.0-5.20); Red Cell Distribution Width 16.7 % (11.8-14.3); White Blood Cell 11.4 10^3/uL (4.4-10.8)
[2024-10-10 06:26] LABS: Alanine Aminotransferase 22 U/L (7-40); Alkaline Phosphatase 67 U/L (46-116); Anion Gap 9 (5-15); BUN/Creatinine Ratio 15.9 (10.0-20.0); Blood Urea Nitrogen 13 mg/dL (9-23); Calcium 9.7 mg/dL (8.7-10.4); Carbon Dioxide 23 mmol/L (20-31); Chloride 104 mmol/L (98-107); Potassium 3.6 mmol/L (3.5-5.1); Sodium 136 mmol/L (136-145)
[2024-10-10 06:27] LABS: Albumin 4.6 g/dL (3.2-4.8); Bilirubin, Total 0.6 mg/dL (0.2-1.0); Total Protein 7.3 g/dL (5.7-8.2)
[2024-10-10 06:29] LABS: Aspartate Aminotransferase 12 U/L (13-40); Glucose 151 mg/dL (74-106)
[2024-10-10] MEDS: cefTRIAXone 1GM/50ML D5W 50 ML IV SCH (08:36)
[2024-10-10] MEDS ORDERED: dilTIAZem 25 MG/5 ML VIAL IV ONE (09:45)
--- NOTE | 2024-10-10 10:07 | DVH ---
CLINICAL INFORMATION: 29 years old, Female; cholecystitis. TECHNIQUE: 4.1 mCi of Choletec were administered intravenously. Images of the upper abdomen were ob tained at 1 minute intervals up to a total time of 48 minutes. COMPARISON: Ultrasound dated 10/09/2024. FINDINGS: The gallbladder is not visualized on additional images obtained up to 48 minutes or on del ayed images obtained at 4:00 a.m.. There is prompt excretion of radiopharmaceutical into the common b ile duct and small bowel. IMPRESSION: 1. Nonvisualized gallbladder. Findings are suspicious for acute cholecystitis in the appropriate clin ical setting. 2. No evidence for common bile duct obstruction.
[2024-10-10] MEDS ORDERED: METHOCARBAMOL 500 MG TAB PO PRN (12:00)
[2024-10-10] MEDS: SUMAtriptan SUCCINATE 6 MG/0.5 ML VL SC ONE (17:23)
[2024-10-11 01:00] VITALS: BP 102/60; PULSE 99; RESP 18; TEMP 97.9; O2SAT 96
[2024-10-11 05:00] VITALS: BP 115/70; PULSE 89; RESP 19; TEMP 98.3; O2SAT 100
[2024-10-11 06:17] LABS: Alanine Aminotransferase 16 U/L (7-40); Albumin 4.2 g/dL (3.2-4.8); Alkaline Phosphatase 59 U/L (46-116); Anion Gap 9 (5-15); BUN/Creatinine Ratio 12.3 (10.0-20.0); Blood Urea Nitrogen 10 mg/dL (9-23); Calcium 9.6 mg/dL (8.7-10.4); Carbon Dioxide 23 mmol/L (20-31); Chloride 106 mmol/L (98-107); Potassium 3.6 mmol/L (3.5-5.1); Sodium 138 mmol/L (136-145)
[2024-10-11 06:18] LABS: Bilirubin, Total 0.4 mg/dL (0.2-1.0); Total Protein 6.7 g/dL (5.7-8.2)
[2024-10-11 06:21] LABS: Basophils # (auto) 0 10 ^3/uL (0-0.2); Eosinophils # (auto) 0.1 10 ^3/uL (0-0.8); Mean Corpuscular Volume 76.1 fL (80.0-100.0); Monocytes # (auto) 0.6 10 ^3/uL (0-1.3); Neutrophils # (auto) 6.8 10 ^3/uL (1.6-8.6); Nucleated Red Blood Cells % 0.1 %
[2024-10-11 06:22] LABS: Basophils % (auto) 0.4 % (0.0-2.0); Eosinophils % (auto) 1.2 % (0.0-7.0); Hematocrit 33.1 % (36.0-46.0); Hemoglobin 10.7 g/dL (12.2-16.2); Lymphocytes # (auto) 2.1 10 ^3/uL (0.4-5.4); Lymphocytes % (auto) 22.1 % (10.0-50.0); Mean Corpuscular Hemoglobin 24.6 pg (28.0-32.0); Mean Corpuscular Hgb Conc. 32.4 g/dL (32.0-36.0); Monocytes % (auto) 6.2 % (0.0-12.0); Neutrophils % (auto) 70.1 % (37.0-80.0); Platelet Count (auto) 241 10^3/uL (140-450); Red Blood Cells 4.36 10^6/uL (4.0-5.20); White Blood Cell 9.6 10^3/uL (4.4-10.8)
[2024-10-11 06:27] LABS: Aspartate Aminotransferase 10 U/L (13-40); Glucose 141 mg/dL (74-106)
[2024-10-11 09:00] VITALS: BP 108/72; PULSE 103; RESP 16; TEMP 98; O2SAT 98
[2024-10-11] MEDS ORDERED: METR-344 PO (12:37)
--- NOTE | 2024-10-11 12:45 | DVHDS2 ---
Discharge Summary Date of Admission Oct 08, 2024 at 23:59 Date of Discharge: Oct 11, 2024 Admitting Diagnosis Acute cholecystitis Labs/Diagnostic Data: Laboratory Results Test 10/11/24 11:06 10/11/24 05:29 10/10/24 05:53 10/09/24 01:43 POC Glucose 144 mg/dl (70-106) White Blood Count 9.6 10^3/uL (4.4-10.8) Red Blood Count 4.36 10^6/uL (4.0-5.20) Hemoglobin 10.7 g/dL (12.2-16.2) Hematocrit 33.1 % (36.0-46.0) Mean Corpuscular Volume 76.1 fL (80.0-100.0) Mean Corpuscular Hemoglobin 24.6 pg (28.0-32.0) Mean Corpuscular Hemoglobin Concent 32.4 g/dL (32.0-36.0) Red Cell Distribution Width 17.0 % (11.8-14.3) Platelet Count 241 10^3/uL (140-450) Mean Platelet Volume 8.2 fL (6.9-10.8) Neutrophils (%) (Auto) 70.1 % (37.0-80.0) Lymphocytes (%) (Auto) 22.1 % (10.0-50.0) Monocytes (%) (Auto) 6.2 % (0.0-12.0) Eosinophils (%) (Auto) 1.2 % (0.0-7.0) Basophils (%) (Auto) 0.4 % (0.0-2.0) Neutrophils # (Auto) 6.8 10 ^3/uL (1.6-8.6) Lymphocytes # (Auto) 2.1 10 ^3/uL (0.4-5.4) Monocytes # (Auto) 0.6 10 ^3/uL (0-1.3) Eosinophils # (Auto) 0.1 10 ^3/uL (0-0.8) Basophils # (Auto) 0 10 ^3/uL (0-0.2) Nucleated Red Blood Cells 0.1 % Sodium Level 138 mmol/L (136-145) Potassium Level 3.6 mmol/L (3.5-5.1) Chloride Level 106 mmol/L (98-107) Carbon Dioxide Level 23 mmol/L (20-31) Anion Gap 9 (5-15) Blood Urea Nitrogen 10 mg/dL (9-23) Creatinine 0.81 mg/dL (0.550-1.02) Glomerular Filtration Rate Calc 101 mL/min (>90) BUN/Creatinine Ratio 12.3 (10.0-20.0) Serum Glucose 141 mg/dL (74-106) Calcium Level 9.6 mg/dL (8.7-10.4) Total Bilirubin 0.4 mg/dL (0.2-1.0) Aspartate Amino Transferase (AST) 10 U/L (13-40) Alanine Aminotransferase (ALT) 16 U/L (7-40) Alkaline Phosphatase 59 U/L (46-116) Total Protein 6.7 g/dL (5.7-8.2) Albumin 4.2 g/dL (3.2-4.8) Hemoglobin A1c 7.0 % A1C (<5.7) Urine Color Yellow (Yellow) Urine Clarity Clear (Clear) Urine pH 7.0 (5.0-9.0) Urine Specific [place] 1.034 (1.001-1.035) Urine Protein Trace (Negative) Urine Ketones Negative (Negative) Urine Blood Negative /uL (Negative) Urine Nitrite Negative (Negative) Urine Bilirubin Negative (Negative) Urine Urobilinogen Normal mg/dL (Negative) Urine Leukocyte Esterase Negative /uL (Negative) Urine RBC 2 /hpf (0 - 4) Urine Microscopic WBC 2 /HPF (0-5) Urine Squamous Epithelial Cells Mod /hpf (<5) Urine Bacteria None seen /hpf (None Seen) Urine Mucus Few (None Seen) Urine Glucose Normal mg/dL (Normal) Urine Opiates Screen Pos (NEGATIVE) Urine Fentanyl Screen Neg (NEGATIVE) Urine Barbiturates Screen Neg (NEGATIVE) Urine Phencyclidine Screen Neg (NEGATIVE) Urine Amphetamines Screen Neg (NEGATIVE) Urine Benzodiazepines Screen Neg (NEGATIVE) Urine Cocaine Screen Neg (NEGATIVE) Urine Cannabinoids Screen Neg (NEGATIVE) Test 10/09/24 00:56 10/08/24 20:26 Prothrombin Time 10.9 sec (9.3-11.8) Prothrombin Time INR 1.03 (0.9-1.15) Activated Partial Thromboplast Time 25.2 SEC (24.5-34.5) Magnesium Level 2.0 mg/dL (1.6-2.6) Lipase 42 U/L (12-53) Thyroid Stimulating Hormone (TSH) 2.12 uIU/mL (0.55-4.78) D-Dimer, Quantitative < 0.19 mg/L FEU (0.0-0.49) Troponin I High Sensitivity < 3 ng/L (</=34) Beta HCG, Quantitative 0.2 mIU/mL (1.5-4.2) Other Laboratory Tests 10/11/24 05:29 Brief Hx & Hospital Course: History of Present Illness SIRI SOLIS is a 29-year-old female with a PMH of recently diagnosed lupus, type 2 DM, seizures, GERD, rheumatoid arthritis presented to the ED with the chief complaints of right-sided chest pain which started on the day of admission 6:00 p.m.. Patient reported she has been started having right-sided chest pain which is sharp, and right-sided upper abdominal pain associated with nausea, vomiting which prompted her to visit ED. patient reported of she has been experiencing like these symptoms before but not severe like now. My assessment patient denies fever, diarrhea, diaphoresis, and other acute associated symptoms. Course of hospitalization: Patient had HIDA scan following gallbladder ultrasound which did show evidence of acute cholecystitis. Surgical consultation was obtained. Patient was placed on antibiotic therapy. At this time the patient will not undergo surgical intervention. Patient's white blood cell count as well as a decrease in her LFTs. Patient was able to tolerate oral intake without any abdominal pain. Patient will be continued on antibiotic therapy for additional five days with Flagyl 500 mg p.o. 3 times a day. She was instructed to follow up with her PCP with the next one two weeks. All questions answered. Physical examination General: Alert and Oriented x3. No acute distress. Well-nourished. Eyes: EOMI. Anicteric. HENT: Moist mucous membranes. Lungs: Clear to auscultation bilaterally. No accessory muscle use. Cardiovascular: Regular rate and rhythm. No murmur. No JVD. Abdomen: Soft, non-tender and non-distended. No palpable masses. Extremities: No edema. Non-tender. Skin: No rashes or lesions. Warm. Neurologic: No focal neurological deficits. CN II-XII grossly intact, but not individually tested. Psychiatric: Cooperative. Appropriate mood and affect. Total time spent with patient discussing and formulating plan of care: 35 minutes. This medical document was created using an electronic medical record system with [employer] dictation system. Although this document has been carefully reviewed, there may still be some phonetic and typographical errors. These areas are purely typographical due to imperfections of the software programs, and do not reflect any compromise in the patient's medical care. Condition at Discharge: Fair Final Diagnosis/Problems List Acute cholecystitis Secondary diagnosis Diabetes mellitus Dyslipidemia Lupus Obesity Seizure disorder Chronic pain syndrome Discharge Disposition: Home Discharge Instruct/Medications Diet: Regular Activity: No Restrictions, As Tolerated Follow Up/Referral: Dr. Duke in 1-2 weeks Medications: Flagyl 500mg po TID x 5 days Continue all home medications 36 Discharge Statement: "Patient was advised to return to the ER or call 911 if any headaches, dizziness, shortness of breath, chest pain, abdominal pain, bleeding, fevers, or worsening of medical condition. Patient was counseled about treatment plan, medications, possible side effects, patientverbalized understanding. All questions were answered to the best of my ability. This discharge took greater then 30 minutes in planning, reviewing documentation, counseling the patient, and discussing with other team members." ASSESSMENT ASSESSMENT Assessment Acute cholecystitis Date of Service: Oct 11, 2024 Billing Provider: SUMIT STEWART NP Common Visit Codes: 38695-BZW/OBS DISCH DAY >30min SUMIT STEWART NP Oct 11, 2024 12:45
[2024-10-11 13:00] VITALS: BP 122/74; PULSE 76; RESP 16; TEMP 98.4; O2SAT 98
[2024-10-11 16:54] VITALS: BP 122/74; PULSE 98; RESP 76; TEMP 98; O2SAT 98
[2024-10-11 16:57] VITALS: BP 98/55; PULSE 99; RESP 20; TEMP 98; O2SAT 99
== END 2024-10-11 20:00 | disposition home or self-care (01) | DRG 720 ==
LOC: EDBD 19:14 → ER 19:14 → OVERFLOW 23:59 → TELE-EAST 10-09 21:56
PROVIDERS: ADMIT Internal Medicine; ATTEND Nurse Practitioner Acute Care
DX: A41.9 Sepsis, unspecified organism (principal); K81.0 Acute cholecystitis; I11.0 Hypertensive heart disease with heart failure; K76.0 Fatty (change of) liver, not elsewhere classified; E11.9 Type 2 diabetes mellitus without complications; K21.9 Gastro-esophageal reflux disease without esophagitis; M06.9 Rheumatoid arthritis, unspecified; E78.5 Hyperlipidemia, unspecified; E66.9 Obesity, unspecified; M41.9 Scoliosis, unspecified; G40.909 Epilepsy, unspecified, not intractable, without status epilepticus; G89.4 Chronic pain syndrome; Z79.899 Other long term (current) drug therapy; Z83.3 Family history of diabetes mellitus; Z87.891 Personal history of nicotine dependence; Z88.2 Allergy status to sulfonamides; Z88.6 Allergy status to analgesic agent; Z88.1 Allergy status to other antibiotic agents; Z88.8 Allergy status to other drugs, medicaments and biological substances; Z68.43 Body mass index [BMI] 50.0-59.9, adult
CPT/HCPCS: 36415; 71045; 76705; 78226; 80048; 80053; 80307; 81001; 82962; 83036; 83690; 83735; 84443; 84484; 84702; 85025; 85379; 85610; 85730; 86850; 86900; 86901; 93005; G0378; J2405; J2470; J3490